=== PATIENT | female | born 1990 | race Caucasian/White ===

== ENCOUNTER 2017-02-09 19:04 | Emergency (ER) | payer OTHER ==
[2017-02-09] MEDS ORDERED: ONDANSETRON ODT 4 MG TABLET TL STA (20:17)
[2017-02-09] MEDS ORDERED: ONDANSETRON ODT 4 MG TABLET ONE ×2 (20:19→20:21)
[2017-02-09 20:25] VITALS: BP 120/75
--- NOTE | 2017-02-09 20:28 | ED Physician Documentation ---
PD HPI OVERDOSE - Stated complaint Stated Complaint: CP,HEART FLUTTERS - Chief complaint Chief Complaint: General - History obtained from History obtained from: Patient - History of Present Illness Timing - onset: Today Subtance(s) ingested: Single Associated symptoms: Palpitations Similar symptoms before: Has not had sx before Recently seen: Not recently seen - Additional information Additional information: Patient is a 26 year old female with no significant past medical history who is presenting to the emergency department for palpitations and dizziness after eating edibles earlier today. patient states that she ate three edibles and then started to develop dizziness, palpitations and nausea. Upon initial evaluation by myself patient was feeling a bit better and was asking to go home. Review of Systems Constitutional: denies: Fever, Chills Eyes: reports: Photophobia. denies: Discharge, Irritation Ears: denies: Ear pain, Drainage/discharge Nose: denies: Rhinorrhea / runny nose, Congestion Throat: denies: Dental pain / toothache, Oral lesions / sores Cardiac: reports: Palpitations. denies: Chest pain / pressure Respiratory: denies: Dyspnea, Cough GI: reports: Nausea. denies: Abdominal Pain, Vomiting : denies: Dysuria, Frequency, Hesitancy Skin: denies: Rash, Lesions Musculoskeletal: denies: Neck pain, Back pain, Extremity pain Neurologic: reports: Numbness. denies: Generalized weakness, Focal weakness Immunocompromised: denies: Immunocompromised PD PAST MEDICAL HISTORY - Past Medical History Other Past Medical History: Gets bronchitis yearly otherwise healthy - Past Surgical History Past Surgical History: No - Present Medications Home Medications: Ambulatory Orders Medication Instructions Recorded Confirmed Control 1 tab PO DAILY 02/09/17 Cyclobenzaprine [Flexeril] 10 mg PO TID 02/09/17 02/09/17 Fluoxetine HCl [Prozac] 0 mg PO DAILY 02/09/17 02/09/17 Ondansetron Odt [Zofran] 4 mg TL Q6H PRN #14 tablet 02/09/17 - Allergies Allergies/Adverse Reactions: Allergies Allergy/AdvReac Type Severity Reaction Status Date / Time No Known Drug Allergies Allergy Verified 02/09/17 19:12 - Social History Does the pt smoke?: Yes Smoking Status: Current every day smoker Does the pt drink ETOH?: No Does the pt have substance abuse?: No - Immunizations Immunizations are current?: Yes - POLST Patient has POLST: No PD ED PE NORMAL - Vitals Vital signs reviewed: Yes - General General: Alert and oriented X 3, No acute distress - HEENT HEENT: Atraumatic, PERRL - Neck Neck: Supple, no meningeal sign - Respiratory Respiratory: No respiratory distress, Clear bilaterally - Abdomen Abdomen: Soft, Non tender, Non distended - Derm Derm: Normal color, Warm and dry, No rash - Extremities Extremities: No deformity, No tenderness to palpate, Normal ROM s pain - Neuro Neuro: Alert and oriented X 3, No motor deficit, No sensory deficit, Normal speech - Psych Psych: Normal mood, Normal affect PD ED PE EXPANDED - HEENT HEENT: Dry mucous membranes - Cardiac Cardiac: Tachy Results - Vitals Vitals: Vital Signs - 24 hr 02/09/17 02/09/17 02/09/17 19:09 20:17 20:24 Temperature 36.5 C Heart Rate 128 H 116 H 109 H Respiratory 14 14 14 Rate Blood Pressure 148/88 H 120/75 O2 Saturation 100 100 100 Oxygen O2 Source Room air PD MEDICAL DECISION MAKING - ED course Complexity details: re-evaluated patient, considered differential, d/w patient, d/w family ED course: Patient was [facility] and [facility]. Patient was mildly tachycardic and slightly nauseated. Patient stated that she did not want IV fluids at this time. Patient was treated with zofran and given oral fluids. Patient's was with the patient and patient was stable for discharge home with her . Departure - Departure Disposition: Home, Self Care Clinical Impression: Marijuana intoxication Condition: Good Instructions: ED Marijuana Abuse Prescriptions: Ondansetron Odt [Zofran] 4 mg TL Q6H PRN #14 tablet PRN Reason: Nausea / Vomiting Comments: Your symptoms today were likely secondary to marijuana use. the effects should be self limited meaning it will get better on its own. You should make sure you drink plenty of fluids. You need to be careful with all marijuana use, but especially edibles as the potency is difficult to determine. You may return to the emergency department at any time for new, worsening or uncontrollable symptoms. Discharge Date/Time: 02/09/17 20:36
== END 2017-02-09 20:36 | disposition home or self-care (01) ==
LOC: ED 19:04
DX: F12.929 Cannabis use, unspecified with intoxication, unspecified (principal)
CPT/HCPCS: 93005; 99283; Q0162

== ENCOUNTER 2017-08-08 21:09 | Emergency (ER) | payer OTHER ==
[2017-08-08] MEDS ORDERED: PHENAZOPYRIDINE 100 MG TABLET PO STA (21:23)
[2017-08-08] MEDS ORDERED: HYDROcod/ACETAM 5/325 MG TABLET PO STA (21:23)
--- NOTE | 2017-08-08 21:24 | ED Physician Documentation ---
PD HPI FEMALE - Stated complaint Stated Complaint: POSS UTI - Chief complaint Chief Complaint: Abd Pain - History obtained from History obtained from: Patient - History of Present Illness Timing - onset: Other (27-year-old woman with relatively frequent UTIs presents with suprapubic pain, dysuria, and significant frequency over the last 5 hours without back pain, fevers, or nausea.) Review of Systems Constitutional: denies: Fever, Chills Nose: denies: Rhinorrhea / runny nose, Congestion Respiratory: reports: Reviewed and negative GI: reports: Reviewed and negative PD PAST MEDICAL HISTORY - Past Surgical History Past Surgical History: No - Present Medications Home Medications: Ambulatory Orders Medication Instructions Recorded Confirmed Control 1 tab PO DAILY 02/09/17 Cyclobenzaprine [Flexeril] 10 mg PO TID 02/09/17 02/09/17 Fluoxetine HCl [Prozac] 0 mg PO DAILY 02/09/17 02/09/17 Ondansetron Odt [Zofran] 4 mg TL Q6H PRN #14 tablet 02/09/17 Nitrofurantoin Monohyd/M-Cryst 1 tab PO BID 5 Days capsule 08/08/17 [Macrobid 100 mg Capsule] - Allergies Allergies/Adverse Reactions: Allergies Allergy/AdvReac Type Severity Reaction Status Date / Time No Known Drug Allergies Allergy Verified 08/08/17 21:22 - Social History Does the pt smoke?: Yes Smoking Status: Current every day smoker Does the pt drink ETOH?: No Does the pt have substance abuse?: No - Immunizations Immunizations are current?: Yes - POLST Patient has POLST: No PD ED PE NORMAL - Vitals Vital signs reviewed: Yes - General General: Alert and oriented X 3, Other (Appears uncomfortable) - Abdomen Abdomen: Soft, Non tender - Back Back: No CVA TTP - Neuro Neuro: Alert and oriented X 3, Normal speech Results - Vitals Vitals: Vital Signs - 24 hr 08/08/17 21:15 Temperature 35.9 C L Heart Rate 90 Respiratory 18 Rate Blood Pressure 114/79 O2 Saturation 100 Oxygen O2 Source Room air - Labs Labs: Laboratory Tests 08/08/17 Unknown Urine Color ORANGE Urine Clarity INTERFERENCES Urine pH Ur Specific [place] Urine Protein Urine Glucose (UA) Urine Ketones Urine Occult Blood Urine Nitrite Urine Bilirubin Urine Urobilinogen Ur Leukocyte Esterase Urine RBC TNTC H Urine WBC >25 H Urine WBC Clumps PRESENT Ur Epithelial Cells MOD Transitional H Ur Squamous Epith Cells FEW Squamous Urine Bacteria Few Ur Microscopic Review INDICATED Urine Culture Comments Not Reportable Urine HCG, Qual NEGATIVE Departure - Departure Disposition: 01 Home, Self Care Clinical Impression: Cystitis Condition: Good Record reviewed to determine appropriate education?: Yes Instructions: ED UTI Cystitis Female Prescriptions: Nitrofurantoin Monohyd/M-Cryst [Macrobid 100 mg Capsule] 1 tab PO BID 5 Days capsule Comments: Follow-up with your doctor, return if he develop pain over your kidneys were I showed you, nausea, or fevers.
[2017-08-08] MEDS ORDERED: HYDROcod/ACETAM 5/325 MG TABLET ONE (21:37)
[2017-08-08] MEDS ORDERED: PHENAZOPYRIDINE 100 MG TABLET PO ONE (21:38)
[2017-08-08 21:47] LABS: UA w/ MICROSCOPIC CHARGE YES
[2017-08-08 21:48] LABS: HCG UR QUAL NEGATIVE
[2017-08-08 21:54] LABS: WBC,URINE >25 /HPF (0-5)
[2017-08-08] MEDS ORDERED: NITROFURANTOIN MACRO 100 MG CAPSULE PO STA (21:56)
[2017-08-08] MEDS ORDERED: HYDROcod/ACET 5/325 Prepack 6 PO STA (22:01)
[2017-08-08] MEDS ORDERED: NITROFURANTOIN MACRO 100 MG CAPSULE PO ONE (22:03)
[2017-08-08] MEDS ORDERED: HYDROcod/ACET 5/325 Prepack 6 PO ONE (22:09)
[2017-08-08 22:12] VITALS: BP 113/78
== END 2017-08-08 22:12 | disposition home or self-care (01) ==
LOC: ED 21:09
DX: N30.90 Cystitis, unspecified without hematuria (principal); F17.200 Nicotine dependence, unspecified, uncomplicated
CPT/HCPCS: 81001; 81025; 99283; A9270; 81003; 87086